=== PATIENT | female | born 1950 | race Caucasian/White ===

== ENCOUNTER 2023-07-14 06:00 | Inpatient (IN) | payer BC ==
[~2023-07-14] VITALS: Ht 157.5 cm; Wt 98.4 kg
[~2023-07-14 06:00] MED LIST: CEFAZOLIN SOD 2 GM in D5W 50 ML IV ONE
[2023-07-14] MEDS ORDERED: ACETAMINOPHEN 500 MG TABLET ONE (06:17)
[2023-07-14] MEDS: GABAPENTIN 300 MG CAPSULE PO ONE (06:37)
[2023-07-14] MEDS: ACETAMINOPHEN 500 MG TABLET PO ONE (06:37)
[2023-07-14] MEDS ORDERED: MIDAZOLAM HCL 2 MG/2 ML VIAL (VERSED) ONE (07:37)
[2023-07-14] MEDS ORDERED: LIDOCAINE 1% 10 MG/ML, 20 ML MDV ONE (07:37)
[2023-07-14] MEDS ORDERED: fentaNYL CITRATE/PF 100 MCG/2 ML AMP ONE (07:37)
[2023-07-14] MEDS ORDERED: PROPOFOL DRIP 100 ML IV ONE (07:38)
[2023-07-14] MEDS ORDERED: LR 1,000 ML IV ONE (08:30)
[2023-07-14] MEDS ORDERED: fentaNYL CITRATE/PF 100 MCG/2 ML AMP IVP PRN ×2 (08:30)
[2023-07-14] MEDS ORDERED: NALOXONE HCL 0.4 MG/ML AMP (NARCAN) IVP PRN ×4 (08:30→13:45)
[2023-07-14] MEDS ORDERED: ONDANSETRON HCL 4 MG/2 ML VIAL IVP PRN (08:30)
[2023-07-14] MEDS ORDERED: HYDROmorphone 1 MG/ML INJ. CARTRIDGE IVP PRN ×4 (08:30→11:00)
[2023-07-14] MEDS ORDERED: traMADol HCL HCL 50 MG TABLET (ULTRAM) PO PRN (11:00)
[2023-07-14] MEDS ORDERED: LORATADINE 10 MG TABLET PO PRN (11:00)
[2023-07-14] MEDS ORDERED: oxyCODONE HCL 5 MG TABLET PO PRN (11:00)
[2023-07-14] MEDS ORDERED: NOR10 PO (12:02)
[2023-07-14] MEDS ORDERED: METF-1069 PO (12:02)
[2023-07-14] MEDS ORDERED: SERT25TA PO (12:02)
[2023-07-14] MEDS ORDERED: DOCU250C71 PO (12:02)
[2023-07-14] MEDS ORDERED: IBUP-1970 PO (12:02)
[2023-07-14] MEDS ORDERED: POTA8TAB66 PO (12:02)
[2023-07-14] MEDS ORDERED: HYDR12.55 PO (12:02)
[2023-07-14] MEDS ORDERED: VITD2000 PO (12:02)
[2023-07-14] MEDS ORDERED: CARV6.2554 PO (12:02)
[2023-07-14] MEDS ORDERED: OMEP-268 PO (12:02)
[2023-07-14] MEDS ORDERED: ROSU10TA2 PO (12:02)
[2023-07-14] MEDS ORDERED: ENAL-77 PO (12:02)
[2023-07-14] MEDS ORDERED: BISACODYL 10 MG/SUPPOSITORY RC PRN (13:45)
[2023-07-14] MEDS ORDERED: METOCLOPRAMIDE HCL 10 MG/2 ML VIAL IVP PRN (13:45)
[2023-07-14] MEDS ORDERED: DIPHENHYDRAMINE HCL 25 MG CAPSULE PO PRN (13:45)
[2023-07-14] MEDS ORDERED: LACTULOSE 20 GM/30 ML UDC PO PRN (13:45)
[2023-07-14] MEDS: GABAPENTIN 300 MG CAPSULE ONE (13:57)
[2023-07-14] MEDS: HYDROmorphone 1 MG/ML INJ. CARTRIDGE IVP PRN (13:58)
[2023-07-14] MEDS ORDERED: CEFEPIME 1 GM in D5W 50 ML IV SCH (15:00)
[2023-07-14 15:53] VITALS: BP_SYST 135; PULSE 75; RESP 18; TEMP 98; O2SAT 96
[2023-07-14] MEDS: oxyCODONE HCL 5 MG TABLET PO PRN (16:31)
[2023-07-14] MEDS: ceFAZolin SODIUM 2 GM in D5W 100 ML IV SCH (16:32)
[2023-07-14 16:44] VITALS: PULSE 78; RESP 18; TEMP 98; O2SAT 96
[2023-07-14 20:00] VITALS: BP_SYST 134; PULSE 76; RESP 20; TEMP 98.2; O2SAT 95
[2023-07-14] MEDS: KETOROLAC TROMETHAMINE 10 MG TABLET (TORADOL) PO SCH (22:06)
[2023-07-14] MEDS: SENNOSIDES/DOCUSATE SODIUM 1 TAB TABLET(SENOKOT-S) PO SCH (22:07)
[2023-07-14] MEDS: ACETAMINOPHEN 500 MG TABLET PO SCH (22:09)
[2023-07-15] VITALS (8 sets, daily range): BP systolic 124–143; PULSE 76–80; RESP 16–20; TEMP 97.6–98.4; O2SAT 94–100
[2023-07-15] MEDS ORDERED: ROSUVASTATIN CALCIUM 5 MG/TAB (CRESTOR) PO ONE (07:00)
[2023-07-15] MEDS ORDERED: ENALAPRIL MALEATE (VASOTEC) Non-Formular 10 MG TABLET PO SCH (07:00)
[2023-07-15] MEDS: ASPIRIN 81 MG TAB.CHEW PO SCH (08:33)
[2023-07-15] MEDS: CARVEDILOL 6.25 MG TABLET (COREG) PO ONE (08:34)
[2023-07-15] MEDS: POTASSIUM CHLORIDE 8 MEQ TABLET.ER PO ONE (08:34)
[2023-07-15] MEDS: ATORVASTATIN 20 MG TABLET PO ONE (08:35)
[2023-07-15] MEDS: DOCUSATE SODIUM 250 MG CAPSULE PO ONE (08:35)
[2023-07-15] MEDS: lisinopriL 20 MG TABLET PO ONE (08:35)
[2023-07-15] MEDS: CHOLECALCIFEROL (VITAMIN D3) 2,000 UNIT TABLET PO ONE (09:34)
[2023-07-15] MEDS: SERTRALINE HCL 50 MG TABLET PO ONE (09:34)
[2023-07-15] MEDS: CELECOXIB 200 MG CAPSULE PO SCH (11:00)
[2023-07-15] MEDS: ONDANSETRON HCL 4 MG/2 ML VIAL IVP PRN (12:51)
[2023-07-15] MEDS ORDERED: CARVEDILOL 6.25 MG TABLET (COREG) PO SCH (21:00)
[2023-07-15] MEDS ORDERED: DOCUSATE SODIUM 250 MG CAPSULE PO SCH (21:00)
[2023-07-16] MEDS ORDERED: POTASSIUM CHLORIDE 8 MEQ TABLET.ER PO SCH (09:00)
[2023-07-16] MEDS ORDERED: CHOLECALCIFEROL (VITAMIN D3) 2,000 UNIT TABLET PO SCH (09:00)
[2023-07-16] MEDS ORDERED: lisinopriL 20 MG TABLET PO SCH (09:00)
== END 2023-07-15 17:30 | disposition home or self-care (01) | DRG 470 ==
LOC: SMU 06:00
PROVIDERS: ADMIT Orthopaedic Surgery Sports Medicine; ATTEND Orthopaedic Surgery Sports Medicine
PROC: 0SRC0JA Replacement of Right Knee Joint with Synthetic Substitute, Uncemented, Open Approach (ICD-10-PCS; principal; 2023-07-14 07:37)
DX: M17.11 Unilateral primary osteoarthritis, right knee (principal); Z79.84 Long term (current) use of oral hypoglycemic drugs; Z79.899 Other long term (current) drug therapy
CPT/HCPCS: 73560; 82948; 87081; 88305; 88311; 96379; 97110-GP; 97116-GP; 97530-GP; C1713; C1776; J0690; J0692; J1170; J2001; J2405; J2704; J3010; J3370; J3465; J3490; J7060; J7120